=== PATIENT | male | born 1955 | race Caucasian/White ===

== ENCOUNTER 2020-06-26 08:42 | Outpatient (CLI) | payer MEDICARE, MEDICAID, SELFPAY ==
--- NOTE | 2020-06-26 09:34 | ONC FU_ITS ---
Dr. Maurice Patient Follow-Up Note Patient: Jorge Tubbs Unit #: [id number]: 1955 Dicatated By: Zhang Maurice M.D.Date of Visit:Jun 26, 2020 Onc Med Follow-up/Prog Note Chief Complaint: Elevated blood count. History of Present Illness: This is a 64 year-old man with secondary polycythemia. I had seen him initially in May 2016 in regard to an elevated blood count. At the time he indicated that he had been told in the past that it was due to smoking. His records from Dr. Jiménez included laboratory studies from 04/17/2016. The CBC at that time showed elevated hemoglobin and 19.2 g with hematocrit 56.6%. The red cell indices were in the upper normal range. White blood cell count was 8400 and the platelet count was 196,000. Comprehensive metabolic profile was unremarkable. Hemoglobin A1c level was 6.2%. Previous lab studies from 01/02/2016 included a serum iron of 92 mcg/dL with transferrin saturation 34% and normal ferritin at 210 ng/mL. His records in [facility] include blood counts in August 2009 and in May 2013. These showed hemoglobin levels of 17.4 and 17.9 g respectively with hematocrit levels 51.0 and 54.2%. Both had mildly elevated white blood cell counts and normal platelet counts. He had additional laboratory studies on 06/19/2016. These included an erythropoietin level in the normal range at 17 mIU/mL. The JAK2 (V617F) mutation and the JAK2 exon 12 mutation were not detected. As such, polycythemia rubra vera appeared to be very unlikely, and he was given a presumptive diagnosis of secondary polycythemia. He has been phlebotomized as needed with a target HCT of 50%. His other medical illnesses include hypertension and borderline diabetes. He is disabled due to long-standing osteoarthritis. He has a history of smoking 1-2 packs of cigarettes daily for 45 years. He quit smoking in April 2016. He is seen for a follow-up visit. He had been to see Dr. Jiménez last month and his CBC showed significantly elevated hemoglobin 19.0 g with his hematocrit elevated at 55.5%. White blood cell count was normal at 7800 and platelet count was normal at 203,000. He indicates that he was diagnosed with COVID-19 virus infection in July, but he recovered uneventfully. He complains that he has no energy, but he is still able to do some light work. ECOG score is 1. He has been watching his diet. He is eating only 1 meal a day. He has not had fever. He does have some sweating at night. His breathing has been okay. He does not complain of cough and he has not been having chest pain. He has no GI or complaints. His main problem has been chronic pain. His neck bothers him the most. He also has back pain. It is significant enough to interfere with his sleep. He does not complain of headache. He has occasional dizzy spells. He has numbness/tingling from his knees down to his feet. Medications: Aspirin 0.5 (325 mg) Tablet Oral daily, Gabapentin 1 (600 mg) Tablet Oral b.i.d., Ibuprofen 1 (800 mg) Tablet Oral b.i.d., Lisinopril-Hydrochlorothiazide 1 Tablet (of 20-12.5 mg) Oral daily, TiZANidine HCl 1 (2 mg) Tablet Oral at bedtime PRN Allergies: Codeine Sulfate Vital Signs: Performed on Jun 26, 2020 08:58 Height - 68.50 in Weight - 282 lbs (HIGH) BSA - 2.38 sq.m BMI - 42.25 (HIGH) Temperature - 97.8 F (LOW) Pulse - 79 /min Respiration - 18 /min BP - 152/95 mm(hg) (HIGH) O2 Sat - 96 % Pain - 0 Physical Examination: Constitutional - He does not appear acutely ill, Eyes - Sclerae nonicteric. Conjunctivae clear, ENMT - No lesions noted in the oral cavity, Hematologic/Lymphatic - No cervical, clavicular, or axillary adenopathy, Respiratory - Lungs sound clear with diminished air movement bilaterally, Cardiovascular - Heart rhythm is regular. There is no murmur, gallop, or rub noted, Abdomen - Mildly distended. Liver and spleen are not enlarged. There is no abdominal mass or ascites noted and there is no inguinal adenopathy, Extremities - No edema, Neurologic - No focal neurologic deficits noted. Lab/Imaging: Test performed on Jun 07, 2020 08:18 Iron, Total 90 mcg/dL Cholesterol, Total 234 mg/dL Glucose 173 mg/dL BUN 23 mg/dL HDL Cholesterol 48 mg/dL Creatinine 1.32 mg/dL Cr Clearance (Est) 92.76 mL/min VLDL Cholesterol 186 mg/dL Triglycerides 427 mg/dL Sodium 138 mmol/L Potassium 4.3 mmol/L Chloride 100 mmol/L CO2 26 mmol/L Calcium 9.4 mg/dL Protein, Total 7.4 g/dL Albumin 4.5 g/dL Globulin 2.5 g/dL Bilirubin, Total 0.5 mg/dL Alkaline Phosphatase 61 IU/L AST (SGOT) 19 IU/L ALT (SGPT) 41 IU/L Hemoglobin A1C 7.1 % WBC 7.8 10^9/L RBC 6.18 10^12/L HGB 19.0 g/dL HCT 55.5 % MCV 89.8 fl MCH 30.7 pg MCHC 34.2 g/dL RDW 13.6 % Platelet Count 203 10^9/L MPV 10.8 fL Neutrophils (Gran) 4641 10^9/L Lymphocytes 2231 10^9/L Monocytes 686 10^9/L Eosinophils 179 10^9/L Basophils 62 10^9/L Manual Lymphocytes 28.6 % Manual Monocytes 8.8 % Manual Eosinophils 2.3 % Manual Basophils 0.8 % Problem List: 1. Secondary polycythemia. 2. COPD. 3. Hypertension. 4. Type 2 diabetes. 5. Degenerative arthritis/degenerative disease of the spine. 6. Obesity. 7. He was diagnosed with COVID-19 virus infection in July 2019. He recovered uneventfully. Problems Addressed with this Encounter and Plan: Patient presented in May 2016 with significantly elevated hemoglobin/hematocrit levels in the setting of normal white blood cell count and normal platelet count. He had a significant smoking history, but he was not overtly hypoxic. His laboratory evaluation included a normal erythropoietin level. The JAK2 (V617F) mutation and the JAK2 exon 12 mutation were not detected. Overall, the findings were consistent with secondary polycythemia. He has been phlebotomized with his target hematocrit over 50%. He has not been consistent with follow-up. He had seen Dr. Jiménez for a follow-up visit last month. His hemoglobin at that time was significantly elevated at 19.0 g with hematocrit 55.8%. He does have limited activity tolerance, but his overall clinical status appears stable. He will be phlebotomized 1 unit PRBC today. He will be scheduled for repeat CBC in 6 weeks and for a follow-up visit in 3 months. He will be phlebotomized again as needed for hematocrit > 52%. Signed By: Zhang Maurice M.D. <<Signature on File>>
== END 2020-06-26 08:43 | disposition home or self-care (01) ==
LOC: ONCMED 08:48
PROVIDERS: PCP Electrodiagnostic Medicine; Visit Provider Internal Medicine Medical Oncology
DX: D75.1 Secondary polycythemia (principal); Z86.16 Personal history of COVID-19
CPT/HCPCS: 99214

== ENCOUNTER 2021-05-21 08:50 | Outpatient (CLI) | payer MEDICARE, MEDICAID, SELFPAY ==
--- NOTE | 2021-05-21 09:10 | XR_ITS ---
WS: [id number] Left hand, 3 views, 05/21/2021 Clinical Data: OSTEOARTHRITIS THUMB/L THUMB PAIN Comparison: None. Findings: No fractures or dislocations are seen. The soft tissues are unremarkable. There is osteoarthritic jose juan nge of the left first finger IP joint. XR/XR hand LT min 3V* [id number] Impression: Osteoarthritis of the left first finger IP joint.
== END 2021-05-21 08:51 | disposition home or self-care (01) ==
LOC: RAD 09:01
PROVIDERS: PCP Electrodiagnostic Medicine; Visit Provider Electrodiagnostic Medicine
DX: M19.042 Primary osteoarthritis, left hand (principal)
CPT/HCPCS: 73130

== ENCOUNTER 2021-07-29 21:09 | Emergency (ER) | payer MEDICARE, MEDICAID, SELFPAY ==
--- NOTE | 2021-07-29 21:27 | ECG_ITS ---
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 Measurements Intervals Mcdonald Rate: 95 P: 56 CT: 131 QRS: -1 QRSD: 93 T: 68 QT: 328 QTc: 414 Interpretive Statements SINUS RHYTHM MODERATE ST DEPRESSION [0.05+ mV ST DEPRESSION] No previous ECG available for comparison Electronically Signed On 07-30-2021 9:19:17 CDT by Miguel Marmolejo M.D. [email or web address] general [email or web address] regional medical center.[employer]/store/NU/[id number] f
--- NOTE | 2021-07-29 21:27 | XRR_ITS ---
PROCEDURE INFORMATION: Exam: XR Chest Exam date and time: 07/29/2021 9:40 PM Age: 65 years old Clinical indication: Pain; Chest pressure; Additional info: Cp TECHNIQUE: Imaging protocol: XR of the chest. Views: 1 view. COMPARISON: CR Chest 2 views* [id number] 02/08/2016 3:52 PM FINDINGS: Lungs: Emphysematous changes suspected. Bibasilar atelectasis versus minimal infiltrate. Pleural spaces: Unremarkable. No pleural effusion. No pneumothorax. Heart/Mediastinum: Cardiomegaly. Bones/joints: Unremarkable. XR/XR chest 1V portable [id number] IMPRESSION: 1. Cardiomegaly. 2. Emphysematous changes suspected. 3. Bibasilar atelectasis versus minimal infiltrate.
[2021-07-29 21:35] VITALS: BP 184/118; PULSE 96; RESP 18; O2SAT 94
[2021-07-29 21:37] LABS: Basophils # 0.1 10^3/uL (0.0-0.1); Basophils % 0.5 %; Eosinophils # 0.2 10^3/uL (0.0-0.8); Eosinophils % 1.7 %; Hematocrit 54.3 % (42.0-52.0); Hemoglobin 17.7 g/dL (11.7-16.6); Lymphocytes # 2.5 10^3/uL (0.8-4.8); Lymphocytes % 26.4 %; Mean Corpuscular HGB Conc 32.6 g/dL (30.0-36.0); Mean Corpuscular Hemoglobin 29.2 pg (28.0-34.0); Mean Corpuscular Volume 89.6 fl (80-94); Monocytes # 0.9 10^3/uL (0.2-0.9); Monocytes % 9.6 %; Neutrophils # 5.88 10^3/uL (1.8-7.7); Neutrophils % 61.1 %; Nucleated Red Blood Cells % 0 %; Platelet Count 239 10^3/cmm (130-400); Red Blood Count 6.06 10^6/uL (4.1-5.3); Red Cell Distribution Width 13.7 % (12.1-15.1); White Blood Count 9.6 10^3/uL (4.0-10.0)
--- NOTE | 2021-07-29 21:42 | ED_ITS ---
HPI - Chest Pain General: Chief Complaint: Chest Pain Stated Complaint: cp Time Seen by Provider: 07/29/21 21:16 Source: patient Mode of arrival: ambulatory Limitations: no limitations History of Present Illness: 65-year-old male states been having some pain in the left side of his chest along with his left neck and left arm. States is been a sharp pain denies any worsening proving factor states pain currently is a 4 out of 10. He states that he did have a tree limb fall on the left neck 1 week ago states that pain has been getting better this pain seems different denies any shortness of breath denies any fever cough. Associated symptoms: Deny abdominal pain, dyspnea, fever(s), nausea or vomiting Review of Systems Const: Denies: fever(s), chills, body aches or change in appetite Eyes: Denies: blurry vision or eye discomfort ENMT: Denies: throat pain or dental pain Card: Reports: chest pain Resp: Denies: dyspnea GI: Denies: abdominal pain, nausea, vomiting or diarrhea : Denies: dysuria Musc: Reports: neck pain Skin/Breast: Denies: rash Neuro: Denies: headache(s) Psych: Denies: depression Wilfrid/Lymph: Denies: easy bruising All/Imm: Denies: urticaria PFSH ED PFSH: Family History (Updated 07/29/21 @ 21:44 by Lizbeth Hook MD) Denies family history of Cancer Social History (Updated 07/29/21 @ 21:43 by Lizbeth Hook MD) Substance/Drug Use: never Physical Exam Const: COMMON NORMALS: no acute distress, patient oriented x3 and healthy appearing HENMT: COMMON NORMALS: normocephalic and atraumatic HEAD & SCALP: normocephalic and atraumatic Eye: COMMON NORMALS: Equal, round and reactive pupils present and EOMs intact bilaterally PUPIL: Yes Equal, round and reactive pupils present Neck/C-Spine: COMMON NORMALS: full ROM and supple Chest: COMMONS NORMALS: normal inspection of the chest and normal palpation of entire chest wall Resp: COMMON NORMALS: normal respiratory effort, No retractions, No use of accessory muscles and clear to auscultation bilaterally AUSCULTATION: clear to auscultation bilaterally Cardio: COMMON NORMALS: regular rate, regular rhythm and No murmurs present (Cardio) RATE: regular rate RHYTHM: regular rhythm GI: COMMON NORMALS: Normal to inspection, nondistended, normoactive bowel sounds present, Soft to palpation, non-tender and no masses PALPATION: Yes Soft to palpation Extremity: COMMON NORMALS: normal to inspection and full ROM Neuro: COMMON NORMALS: patient oriented x3, moves all extremities and no focal motor deficits Psych: COMMON NORMALS: mental status grossly normal, Normal thought process present and cooperative THOUGHT PROCESS: Normal thought process present Skin: COMMON NORMALS: no rashes or lesions noted and no wounds GENERAL SKIN EXAM: no rashes or lesions noted Course Vital Signs: Vital signs: Vital Signs Pulse Rate 96 07/29/21 21:35 Respiratory Rate 18 07/29/21 22:33 Blood Pressure 184/118 07/29/21 21:35 Pulse Oximetry 94 07/29/21 21:35 MDM - Chest Pain Medical Decision Making Patient presents here with some chest pain along with left arm pain atypical in nature could be some pain from his injury last week his initial and repeat troponin D-dimer is negative EKGs here are normal as well he is stable for discharge he is to follow-up with his PCP his blood pressure at discharge is 128/95. He is return if worsening he understands agrees to plan. Lab Data : 07/29/21 21:25 07/29/21 21:25 Radiology Impressions Chest X-Ray 07/29/21 21:27 IMPRESSION: 1. Cardiomegaly. 2. Emphysematous changes suspected. 3. Bibasilar atelectasis versus minimal infiltrate. Laboratory Results WBC 9.6 10^3/uL (4.0-10.0) 07/29/21 21:25 RBC 6.06 10^6/uL (4.1-5.3) H 07/29/21 21:25 Hgb 17.7 g/dL (11.7-16.6) H 07/29/21 21:25 Hct 54.3 % (42.0-52.0) H 07/29/21 21:25 MCV 89.6 fl (80-94) 07/29/21 21:25 MCH 29.2 pg (28.0-34.0) 07/29/21 21: MCHC 32.6 g/dL (30.0-36.0) 07/29/21 21:25 RDW 13.7 % (12.1-15.1) 07/29/21 21:25 Plt Count 239 10^3/cmm (130-400) 07/29/21 21: MPV 10.0 fL (7.4-10.4) 07/29/21 21:25 Neut % (Auto) 61.1 % 07/29/21 21: Lymph % (Auto) 26.4 % 07/29/21 21: [place] % (Auto) 9.6 % 07/29/21 21:25 Eos % (Auto) 1.7 % 07/29/21 21: Baso % (Auto) 0.5 % 07/29/21: Neut # (Auto) 5.88 10^3/uL (1.8-7.7) 07/29/21: Lymph # (Auto) 2.5 10^3/uL (0.8-4.8) 07/29/21: [place] # (Auto) 0.9 10^3/uL (0.2-0.9) 07/29/21 21: Eos # (Auto) 0.2 10^3/uL (0.0-0.8) 07/29/21: Baso # (Auto) 0.1 10^3/uL (0.0-0.1) 07/29/21: Nucleated RBC % (auto) 0 % 07/29/21: Nucleated RBCs # 0.0 /100WBC 07/29/21: D-Dimer 0.31 ug/mIFEU (0-0.59) 07/29/21 21:25 Sodium 141 mmol/L (136-145) 07/29/21 21:25 Potassium 4.3 mmol/L (3.5-5.1) 07/29/21: Chloride 102 mmol/L (98-107) 07/29/21 21:25 Carbon Dioxide 27 mmol/L (22-29) 07/29/21 21:25 Anion Gap 16.3 (5-19) 07/29/21 21:25 BUN 22 mg/dL (8-23) 07/29/21 21:25 Creatinine 1.7 mg/dL (0.7-1.2) H 04/04/22 21:25 GFR Calculation 40.8 mL/min (90-130) L 07/29/21 21:25 Glucose 133 mg/dL (65-115) H 07/29/21 21:25 Calculated Osmolality 297 mOsm/kg (285-295) H 07/29/21 21:25 Calcium 9.7 mg/dL (8.5-10.5) 07/29/21 21:25 Total Bilirubin 0.3 mg/dL (0.15-1.2) 07/29/21 21:25 AST 18 U/L (0-40) 07/29/21 21:25 ALT 30 U/L (0-41) 07/29/21 21:25 Alkaline Phosphatase 64 IU/L (40-130) 07/29/21 21:25 Troponin T Baseline 15 ng/L (0-15) 07/29/21 21:25 Troponin T 120 Minute 15.03 ng/L (0-15) H 07/29/21 23:00 Delta Troponin T 0.03 ABS# (0-10) 07/29/21 23:00 Total Protein 6.3 g/dL (6.6-8.7) L 07/29/21 21:25 Albumin 4.6 g/dL (3.5-5.2) 07/29/21 21:25 Globulin 1.7 g/dL (1.3-4.6) 07/29/21 21:25 EKG Data EKG 1: I personally reviewed and interpreted this EKG as follows: EKG interpretation date: 07/29/21 EKG interpretation time: 21:19 Interpretation: nsr hr [address] or t wave abnormalities qrs 93 qtc 381 EKG 2: I personally reviewed and interpreted this EKG as follows: EKG interpretation date: 07/29/21 EKG interpretation time: 23:38 Interpretation: nsr hr [address] or t wave abnormalities qrs 106 qtc 415 Discharge Plan Discharge Patient Disposition: Home Clinical Impression: Chest pain Discharge Orders: Discharge ED (Routine); Ordered 07/29/21 Ordered By: Lizbeth Hook Referrals: Sg Jiménez DO [Primary Care Provider] - 1-3 days Discharge Diet: Advance as tolerated Discharge Activity: Resume usual activity Patient Instructions: Chest Pain (ED) Coding Level of Care Code ED Manager [employer] for Chg Fwd Exam Comprehensive
[2021-07-29 22:19] LABS: Alanine Aminotransferase 30 U/L (0-41); Albumin Level 4.6 g/dL (3.5-5.2); Alkaline Phosphatase 64 IU/L (40-130); Aspartate Amino Transferase 18 U/L (0-40); Blood Urea Nitrogen 22 mg/dL (8-23); Calcium 9.7 mg/dL (8.5-10.5); Carbon Dioxide 27 mmol/L (22-29); Chloride 102 mmol/L (98-107); Globulin 1.7 g/dL (1.3-4.6); Glomerular Filtration Rate 40.8 mL/min (90-130); Glucose 133 mg/dL (65-115); Osmolality Calculated 297 mOsm/kg (285-295); Sodium 141 mmol/L (136-145); Total Bilirubin 0.3 mg/dL (0.15-1.2); Total Protein 6.3 g/dL (6.6-8.7)
[2021-07-29 22:22] LABS: Anion Gap 16.3 (5-19); Potassium 4.3 mmol/L (3.5-5.1)
[2021-07-29 22:24] LABS: D Dimer 0.31 ug/mIFEU (0-0.59)
[2021-07-29 22:32] LABS: Troponin(5th) Baseline 15 ng/L (0-15)
[2021-07-29 22:33] VITALS: RESP 18
[2021-07-29] MEDS: HYDROmorphone 1 mg/mL INJ 1 mL IVP (22:33)
[2021-07-29] MEDS: ondansetron 2 mg/ML SDV 2 mL 4 MG IVP (22:33)
[2021-07-29] MEDS: aspirin 81 mg Chew Tablet 324 MG PO (22:34)
--- NOTE | 2021-07-29 23:27 | ECG_ITS ---
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 Measurements Intervals [place] Rate: 80 P: 69 ME: 136 QRS: 6 QRSD: 106 T: 55 QT: 379 QTc: 439 Interpretive Statements SINUS RHYTHM No previous ECG available for comparison Electronically Signed On 07-30-2021 9:25:51 CDT by Miguel Marmolejo M.D. [email or web address].[employer]/store/[id number]
[2021-07-29 23:35] LABS: Troponin 5 2HR 15.03 ng/L (0-15); Troponin 5 2HR Delta 0.03 ABS# (0-10)
== END 2021-07-30 00:14 | disposition home or self-care (01) ==
PROVIDERS: Emergency Provider Emergency Medicine; PCP Electrodiagnostic Medicine
DX: R07.9 Chest pain, unspecified (principal); I51.7 Cardiomegaly
CPT/HCPCS: 71045; 80053; 84484; 85025; 85378; 93005; 96374; 96375; 99283; J1170; J2405

== ENCOUNTER → 2021-09-04 13:14 | Outpatient (BNVA) | payer MEDICARE, MEDICAID, SELFPAY | PROVIDERS: PCP Electrodiagnostic Medicine; Referring Provider Electrodiagnostic Medicine; Visit Provider Podiatrist Foot & Ankle Surgery | DX: M72.2 Plantar fascial fibromatosis (principal) | CPT/HCPCS: 73630; 99204 ==

== ENCOUNTER 2021-09-04 14:20 | Outpatient (CLI) | payer MEDICARE, MEDICAID, SELFPAY | END 2021-09-04 14:21 | disposition home or self-care (01) | LOC: SPT 14:21 | PROVIDERS: PCP Electrodiagnostic Medicine; Visit Provider Podiatrist Foot & Ankle Surgery | DX: Z46.89 Encounter for fitting and adjustment of other specified devices (principal); M72.2 Plantar fascial fibromatosis | CPT/HCPCS: 97760; L4397 ==

== ENCOUNTER → 2021-10-16 14:40 | Outpatient (BNVA) | payer MEDICARE, MEDICAID, SELFPAY | PROVIDERS: PCP Electrodiagnostic Medicine; Visit Provider Podiatrist Foot & Ankle Surgery | DX: M72.2 Plantar fascial fibromatosis (principal) | CPT/HCPCS: 99213 ==

== ENCOUNTER 2021-11-19 09:18 | Outpatient (CLI) | payer MEDICARE, MEDICAID, SELFPAY | END 2021-11-19 09:19 | disposition home or self-care (01) | LOC: SPT 09:19 | PROVIDERS: PCP Electrodiagnostic Medicine; Visit Provider Podiatrist Foot & Ankle Surgery | DX: Z46.89 Encounter for fitting and adjustment of other specified devices (principal); M72.2 Plantar fascial fibromatosis | CPT/HCPCS: 97760; L3030 ==

== ENCOUNTER 2023-03-14 18:38 | Emergency (ER) | payer MEDICARE, MEDICAID, SELFPAY ==
[2023-03-14 18:50] VITALS: BP 173/93; PULSE 101; RESP 18; TEMP 36.6; O2SAT 94; BMI 42.4
--- NOTE | 2023-03-14 20:08 | XRR_ITS ---
PROCEDURE INFORMATION: Exam: XR Chest Exam date and time: 03/14/2023 8:11 PM Age: 67 years old Clinical indication: Chest pressure; Patient HX: C/O chest pain; Additional info: Cp TECHNIQUE: Imaging protocol: Radiologic exam of the chest. Views: 1 view. COMPARISON: CR XR chest 1V portable [id number] 07/29/2021 9:40 PM FINDINGS: Lungs: Unremarkable. No consolidation. Pleural spaces: Unremarkable. No pleural effusion. No pneumothorax. Heart/Mediastinum: Unremarkable. No cardiomegaly. Bones/joints: Unremarkable. XR/XR chest 1V [id number] IMPRESSION: No acute findings.
[2023-03-14 20:53] LABS: Basophils # 0.1 10^3/uL (0.0-0.1); Basophils % 0.5 %; Eosinophils # 0.2 10^3/uL (0.0-0.8); Eosinophils % 1.7 %; Hematocrit 55.9 % (37-53); Lymphocytes # 2.4 10^3/uL (0.8-4.8); Lymphocytes % 25.2 %; Mean Corpuscular HGB Conc 32.4 g/dL (30-55); Mean Corpuscular Hemoglobin 29.7 pg (27-33); Mean Corpuscular Volume 91.8 fl (82-101); Mean Platelet Volume 9.9 fL (7.4-10.4); Monocytes # 0.8 10^3/uL (0.2-0.9); Monocytes % 8.3 %; Neutrophils # 6.01 10^3/uL (1.8-7.7); Neutrophils % 63.6 %; Nucleated Red Blood Cells % 0 %; Platelet Count 218 10^3/cmm (157-399); Red Blood Count 6.09 10^6/uL (3.85-5.65); Red Cell Distribution Width 13.9 % (12.1-15.1); White Blood Count 9.45 10^3/uL (3.29-11.43)
[2023-03-14 20:54] VITALS: BP 160/108; PULSE 79; RESP 18; O2SAT 95
[2023-03-14 21:17] LABS: Troponin(5th) Baseline 12 ng/L (0-15)
[2023-03-14 21:26] LABS: Alanine Aminotransferase 32 U/L (0-41); Albumin Level 4.3 g/dL (3.5-5.2); Alkaline Phosphatase 59 U/L (40-130); Anion Gap 18.3 (5-19); Aspartate Amino Transferase 20 U/L (0-40); Blood Urea Nitrogen 28 mg/dL (8-23); Calcium 9.5 mg/dL (8.5-10.5); Carbon Dioxide 25 mmol/L (22-29); Chloride 101 mmol/L (98-107); Globulin 2.6 g/dL (1.3-4.6); Glomerular Filtration Rate 50.7 mL/min (90-130); Glucose 176 mg/dL (65-115); Osmolality Calculated 300 mOsm/kg (285-295); Potassium 4.3 mmol/L (3.5-5.1); Sodium 140 mmol/L (136-145); Total Bilirubin 0.3 mg/dL (0.15-1.2); Total Protein 6.9 g/dL (6.6-8.7)
--- NOTE | 2023-03-14 21:45 | ECG_ITS ---
[facility] Test Date: 2023-03-14 Pat Name: Jorge Tubbs Department: Room: Gender: Male Care Asst: : 1955 Requested By: Kathy eMza Order Number: [id number] Conor MD: Radha Yates M.D. Measurements Intervals [place] Rate: 83 P: 59 AR: 141 QRS: -17 QRSD: 98 T: 63 QT: 349 QTc: 412 Interpretive Statements SINUS RHYTHM WITH SINUS ARRHYTHMIA Compared to ECG 07/29/2021 23:38:24 No significant changes Electronically Signed On 03-15-2023 22:01:55 OCCUPATIONAL THERAPIST ASSISTANT by Radha Yates M.D. [email or web address]FSLogixselect medical specialty hospital - boardman, incMattermark/store/[id number]
--- NOTE | 2023-03-14 22:08 | ECG_ITS ---
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 Measurements Intervals [place] Rate: 98 P: -13 NV: 145 QRS: 97 QRSD: 98 T: -11 QT: 326 QTc: 417 Interpretive Statements SINUS RHYTHM BORDERLINE RIGHT AXIS DEVIATION [QRS AXIS > 90] NONSPECIFIC ST & T-WAVE ABNORMALITY Compared to ECG 07/29/2021 23:38:24 T-wave abnormality now present Electronically Signed On 03-15-2023 22:15:45 HIGH SCHOOL TEACHER by Radha Yates M.D. [email or web address]/store/[id number] f
--- NOTE | 2023-03-14 22:35 | ED_ITS ---
HPI - Chest Pain General: Chief Complaint: Chest Pain Stated Complaint: CP Time Seen by Provider: 03/14/23 21:16 History of Present Illness: 67-year-old male. No prior history of coronary disease. He presents with left arm discomfort, as well as chest discomfort and neck discomfort. He has been burning leaves for the last 3 days. He notes that the pain started really in his left arm, and he thought it was sore muscles. When it reached his chest, and into his neck, he became more concerned. His wanted him to get checked out. Associated symptoms: Deny abdominal pain, dyspnea, fever(s), nausea, palpitations or vomiting Review of Systems Const: Denies: fever(s), chills or body aches Eyes: Denies: change in vision Card: Reports: chest pain; Denies: palpitations Resp: Denies: dyspnea, productive cough, non-productive cough or wheezing GI: Denies: abdominal pain, nausea, vomiting, diarrhea or hematochezia Musc: Reports: neck pain and extremity pain Skin/Breast: Denies: rash Neuro: Denies: headache(s), weakness in extremities, dizziness or confusion PFSH ED PFSH: Family History Denies family history of Cancer Social History Substance/Drug Use: never Physical Exam Const: COMMON NORMALS: no acute distress GENERAL APPEARANCE: cooperative; not ill appearing and not frail appearing HENMT: COMMON NORMALS: normocephalic, atraumatic and Normal external nose present HEAD & SCALP: normocephalic and atraumatic FACE & SINUS: normal facial exam and face symmetric NOSE: Normal external nose present Eye: COMMON NORMALS: Equal, round and reactive pupils present and EOMs intact bilaterally PUPIL: Yes Equal, round and reactive pupils present Neck/C-Spine: GENERAL: Yes trachea midline Chest: CHEST: Yes Symmetrical chest wall rise Resp: COMMON NORMALS: normal respiratory effort, No retractions, No use of accessory muscles and clear to auscultation bilaterally AUSCULTATION: clear to auscultation bilaterally Cardio: COMMON NORMALS: regular rate and regular rhythm RATE: regular rate RHYTHM: regular rhythm GI: COMMON NORMALS: Normal to inspection, nondistended, normoactive bowel sounds present Extremity: COMMON NORMALS: no pedal edema Neuro: JUANIS COMA SCALE: document GCS findings Juanis coma scale eye opening: Spontaneous [place] coma scale verbal response: Orientated Juanis coma scale motor response: Obey commands [place] coma scale total score: 15 SENSORY EXAM: Yes extremities (intact) Psych: COMMON NORMALS: speech normal SPEECH: Yes normal speech Skin: COMMON NORMALS: no rashes or lesions noted GENERAL SKIN EXAM: no rashes or lesions noted Course Vital Signs: Vital signs: Vital Signs Temperature 97.9 F 03/14/23 18:50 Pulse Rate 85 03/14/23 23:40 Respiratory Rate 18 03/14/23 23:40 Blood Pressure 142/87 03/14/23 23:40 Pulse Oximetry 98 03/14/23 23:40 Oxygen Delivery Me thod Room Air 03/14/23 18:50 MDM - Chest Pain Medical Decision Making The patient does have some left arm soreness on exam. This is reproducible. His chest pain is resolved. He is hypertensive. Vitals otherwise good. Hemoglobin is 18. Creatinine is 1.4. Blood sugar is 176. Labs otherwise not remarkable. Initial troponin is 12. His first EKG shows normal sinus rhythm with sinus arrhythmia, normal axis normal intervals and no ST wave changes. Rate is 80. Second EKG shows a sinus rhythm with a bit of anterior lateral ST depression, although without T wave inversion may be lead placement. Awaiting second troponin. Chest x-ray is negative. Second troponin remains normal with a normal delta. He is allowed discharge. Lab Data 03/14/23 20:46 03/14/23 20:46 Radiology Impressions Chest X-Ray 03/14/23 20:08 IMPRESSION: No acute findings. Laboratory Results WBC 9.45 10^3/uL (3.29-11.43) 03/14/23 20:46 RBC 6.09 10^6/uL (3.85-5.65) H 03/14/23 20:46 Hgb 18.10 g/dL (11.27-16.99) H 03/14/23 20:46 Hct 55.9 % (37-53) H 03/14/23 20:46 MCV 91.8 fl (82-101) 03/14/23 20:46 MCH 29.7 pg (27-33) 03/14/23 20:46 MCHC 32.4 g/dL (30-55) 03/14/23 20:46 RDW 13.9 % (12.1-15.1) 03/14/23 20:46 Plt Count 218 10^3/cmm (157-399) 03/14/23 20:46 MPV 9.9 fL (7.4-10.4) 03/14/23 20:46 Neut % (Auto) 63.6 % 03/14/23 20:46 Lymph % (Auto) 25.2 % 03/14/23 20:46 [place] % (Auto) 8.3 % 03/14/23 20:46 Eos % (Auto) 1.7 % 03/14/23 20:46 Baso % (Auto) 0.5 % 03/14/23 20:46 Neut # (Auto) 6.01 10^3/uL (1.8-7.7) 03/14/23 20:46 Lymph # (Auto) 2.4 10^3/uL (0.8-4.8) 03/14/23 20:46 [place] # (Auto) 0.8 10^3/uL (0.2-0.9) 03/14/23 20:46 Eos # (Auto) 0.2 10^3/uL (0.0-0.8) 03/14/23 20:46 Baso # (Auto) 0.1 10^3/uL (0.0-0.1) 03/14/23 20:46 Nucleated RBC % (auto) 0 % 03/14/23 20:46 Nucleated RBCs # 0.0 /100WBC 03/14/23 20:46 Sodium 140 mmol/L (136-145) 03/14/23 20:46 Potassium 4.3 mmol/L (3.5-5.1) 03/14/23 20:46 Chloride 101 mmol/L (98-107) 03/14/23 20:46 Carbon Dioxide 25 mmol/L (22-29) 03/14/23 20:46 Anion Gap 18.3 (5-19) 03/14/23 20:46 BUN 28 mg/dL (8-23) H 03/14/23 20:46 Creatinine 1.4 mg/dL (0.7-1.2) H 03/14/23 20:46 GFR Calculation 50.7 mL/min (90-130) L 03/14/23 20:46 Glucose 176 mg/dL (65-115) H 03/14/23 20:46 Calculated Osmolality 300 mOsm/kg (285-295) H 03/14/23 20:46 Calcium 9.5 mg/dL (8.5-10.5) 03/14/23 20:46 Total Bilirubin 0.3 mg/dL (0.15-1.2) 03/14/23 20:46 AST 20 U/L (0-40) 03/14/23 20:46 ALT 32 U/L (0-41) 03/14/23 20:46 Alkaline Phosphatase 59 U/L (40-130) 03/14/23 20:46 Troponin T Baseline 12 ng/L (0-15) 03/14/23 20:46 Troponin T 120 Minute 12.24 ng/L (0-15) 03/14/23 22:25 Delta Troponin T 0.24 ABS# (0-10) 03/14/23 22:25 Total Protein 6.9 g/dL (6.6-8.7) 03/14/23 20:46 Albumin 4.3 g/dL (3.5-5.2) 03/14/23 20:46 Globulin 2.6 g/dL (1.3-4.6) 03/14/23 20:46 All radiology interpretation(s) finalized by discharge Discharge Plan Discharge Patient Disposition: Home Clinical Impression: Chest pain, Strain of left upper arm Condition: Stable Prescriptions: No Action (DME) Night Splint See Rx Instructions .Route .MEDSUPPLY Qty: 1 0RF Rx Instructions: As directed (DME) Arch Support See Rx Instructions .Route .MEDSUPPLY Qty: 1 0RF Rx Instructions: As directed (DME) Sole Supports See Rx Instructions .Route .MEDSUPPLY Qty: 1 0RF Rx Instructions: As directed Discharge Orders: Discharge ED (Routine); Ordered 03/14/23 Ordered By: Manuel Steen Referrals: Sg Jiménez DO [Primary Care Provider] - 1-3 days Patient Instructions: Chest Pain (ED), Muscle Strain (ED), Opioid Safety, Pain Management Activity Restrictions/Additional Instructions: Ice, rest, you may take Tylenol for discomfort. Return for worsening pain, worsening chest discomfort, shortness of breath, arm swelling, any other concerning symptoms. See your doctor next week. Coding Level of Care Code ED Ict Help Desk Officer for Jamin Scales
[2023-03-14 23:23] LABS: Troponin 5 2HR 12.24 ng/L (0-15); Troponin 5 2HR Delta 0.24 ABS# (0-10)
[2023-03-14 23:30] VITALS: BP 168/88; PULSE 82; O2SAT 95
[2023-03-14 23:40] VITALS: BP 142/87; PULSE 85; RESP 18; O2SAT 98
== END 2023-03-14 23:41 | disposition home or self-care (01) ==
PROVIDERS: Physician Assistant; Emergency Provider Emergency Medicine; PCP Electrodiagnostic Medicine
DX: R07.9 Chest pain, unspecified (principal); S46.912A Strain of unspecified muscle, fascia and tendon at shoulder and upper arm level, left arm, initial encounter; X58.XXXA Exposure to other specified factors, initial encounter
CPT/HCPCS: 36415; 71045; 80053; 84484; 85025; 93005; 99285

== ENCOUNTER 2023-03-20 15:55 | Emergency (ER) | payer MEDICARE, MEDICAID, SELFPAY ==
[2023-03-20 16:19] VITALS: BP 140/97; PULSE 91; RESP 18; TEMP 36.7; O2SAT 94; BMI 42.3
--- NOTE | 2023-03-20 19:02 | W.ED.EXTPRO ---
HPI - Extremity Problem General: Chief complaint: Extremity Problem,Nontraumatic Stated complaint: Reported pain in hips and legs thinks sciatica Time Seen by Provider: 03/20/23 19:02 History of Present Illness: 67-year-old male patient comes in with complaints of increased low back pain for the last 3 days. Patient has a history of degenerative joint disease, degenerative disc disease, diabetes mellitus, neuropathy, hypertension, and high cholesterol. Patient routinely takes gabapentin and ibuprofen to control his pain. Patient also takes cholesterol medication and blood pressure medication daily. Patient appears nontoxic. Patient appears in no acute distress. Associated symptoms: Deny chest pain, fever(s) or rash Review of Systems General: Reports: 10 or more systems reviewed and unremarkable except in HPI and below Const: Denies: fever(s) Card: Denies: chest pain Resp: Denies: dyspnea GI: Denies: nausea or vomiting : Denies: flank pain Musc: Reports: back pain Skin/Breast: Denies: rash PFSH ED PFSH: Family History Denies family history of Cancer Social History Substance/Drug Use: never Physical Exam Const: COMMON NORMALS: alert HENMT: COMMON NORMALS: normocephalic and Normal external nose present HEAD & SCALP: normocephalic NOSE: Normal external nose present Neck/C-Spine: COMMON NORMALS: full ROM Resp: COMMON NORMALS: normal respiratory effort and clear to auscultation bilaterally AUSCULTATION: clear to auscultation bilaterally Cardio: COMMON NORMALS: regular rate and regular rhythm RATE: regular rate RHYTHM: regular rhythm GI: COMMON NORMALS: Soft to palpation PALPATION: Yes Soft to palpation Back/Pelvis: LUMBAR SPINE/LOWER BACK: No lumbar spinal tenderness and Yes paraspinal muscle tenderness Extremity: COMMON NORMALS: normal to inspection Neuro: SENSORIUM/ORIENTATION: Yes alert Skin: COMMON NORMALS: turgor normal GENERAL SKIN EXAM: turgor normal Course Vital Signs: Vital signs: Vital Signs Temperature 98.1 F 03/20/23 16:19 Pulse Rate 91 03/20/23 16:19 Respiratory Rate 14 03/20/23 19:29 Blood Pressure 140/97 03/20/23 16:19 Pulse Oximetry 94 03/20/23 19:29 Oxygen Delivery Me thod Room Air 03/20/23 16:19 MDM - Extremity (Nontraumatic) Medical Decision Making 67-year-old male patient comes in today for complaints of low back pain. On exam patient has some muscle tenderness of his lumbar spine. Patient has normal range of motion of extremities. Patient is ambulatory. Patient has a history of degenerative disc disease and sciatica. Patient reports that he was doing some housework and had been doing a lot over the head cleaning and aggravated his back approximately 3 days ago. Differential diagnosis includes facet arthritis, degenerative disc disease, intervertebral disc disease, lumbar strain. No signs of severe illness or injury was noted. Patient was given a dose of Toradol and hydromorphone for his pain. Patient was given a dose of dexamethasone for inflammation. Reviewed exam with patient with recommendations for treatment and follow-up. Patient reported understanding agreed to plan. No radiology studies performed this visit Discharge Plan Discharge Patient Disposition: Home Clinical Impression: Sciatic leg pain Condition: Stable Prescriptions: New methocarbamol 750 mg tablet 750 mg PO TID PRN (Reason: back pain, muscle spasm) Qty: 30 0RF No Action (DME) Night Splint See Rx Instructions .Route .MEDSUPPLY Qty: 1 0RF Rx Instructions: As directed (DME) Arch Support See Rx Instructions .Route .MEDSUPPLY Qty: 1 0RF Rx Instructions: As directed (DME) Sole Supports See Rx Instructions .Route .MEDSUPPLY Qty: 1 0RF Rx Instructions: As directed Discharge Orders: Discharge ED (Routine); Ordered 03/20/23 Ordered By: Byron Castaneda Referrals: Sg Jiménez DO [Primary Care Provider] - Discharge Diet: Usual diet Discharge Activity: Increase activity as tolerated Patient Instructions: Back Pain (ED) Activity Restrictions/Additional Instructions: Increase activity as tolerated. Gentle stretching and range of motion exercises. Drink plenty of water and fluids with medications. Return to ED for new concerns. 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
[2023-03-20 19:29] VITALS: RESP 14; O2SAT 94
[2023-03-20] MEDS: ketorolac 30 mg/mL INJ IM (19:29)
[2023-03-20] MEDS: HYDROmorphone 1 mg/mL INJ 1 mL IM (19:29)
[2023-03-20] MEDS: dexamethasone 10 mg/mL INJ IM (19:29)
[2023-03-20 19:56] VITALS: PULSE 92; RESP 18; O2SAT 94
== END 2023-03-20 19:57 | disposition home or self-care (01) ==
PROVIDERS: Emergency Provider Nurse Practitioner Family; PCP Electrodiagnostic Medicine
DX: M54.30 Sciatica, unspecified side (principal)
CPT/HCPCS: 96372; 99284; J1100; J1170; J1885

== ENCOUNTER 2023-04-24 11:01 | Outpatient (CLI) | payer MEDICARE, MEDICAID, SELFPAY ==
--- NOTE | 2023-04-24 11:09 | MR_ITS ---
WS: [id number] MRI LUMBAR SPINE NONCONTRAST TECHNIQUE: Sagittal T1, T2 and STIR imaging. Axial T1 and T2 imaging. CLINICAL INFORMATION: INTERVERTEBRA DISC DISORDER COMPARISON: None. FINDINGS: Mild lumbar curve. No acute compression. No high-grade central canal stenosis. L1-L2: Mild facet arthropathy. Spinal canal and foramen are patent. L2-L3: Mild annular bulging. Mild facet arthropathy. Spine canal and foramen are patent. L3-L4: Mild annular bulging. Slight narrowing subarticular recess bilaterally. Mild facet arthropathy . Foramen are patent. L4-L5: Mild annular bulging with slight impingement on the traversing L5 nerve roots bilaterally. Mil d facet arthropathy. Mild LEFT greater than RIGHT foraminal narrowing. L5-S1: RIGHT eccentric disc osteophyte complex impinges the exiting RIGHT L5 nerve root laterally wit h moderate RIGHT foraminal narrowing. LEFT foramen is patent. Mild facet arthropathy. Central disc bu lging impinges the traversing S1 nerve roots bilaterally. Visualized pelvic bony structures: Normal. Paravertebral soft tissues: Normal. Small LEFT renal cyst. Small central protrusion seen on the cervical spine crop picker imaging at C6-7. IMPRESSION: 1. Mild lumbar curve. No acute compression. No high-grade central canal stenosis. 2. RIGHT eccentric disc bulging and osteophytic ridging L5-S1 impinges the far exiting RIGHT L5 nerv e root. Recommend correlation RIGHT L5 nerve root symptoms. 3. Central disc bulge L5-S1 impinges the traversing S1 nerve roots bilaterally. 4. Shallow central disc bulge L4-5 slightly impinges the traversing L5 nerve roots bilaterally. 5. Mild LEFT greater than RIGHT L4-5 foraminal narrowing. 6. Mild facet arthropathy L3-L5. 7. Small central protrusion seen on the cervical spine crop picker imaging at C6-7.
== END 2023-04-24 11:02 | disposition home or self-care (01) ==
LOC: RAD 11:02
PROVIDERS: PCP Electrodiagnostic Medicine; Visit Provider Electrodiagnostic Medicine
DX: M51.37 Other intervertebral disc degeneration, lumbosacral region (principal); M48.07 Spinal stenosis, lumbosacral region; M47.816 Spondylosis without myelopathy or radiculopathy, lumbar region; M50.223 Other cervical disc displacement at C6-C7 level
CPT/HCPCS: 72148

== ENCOUNTER 2024-06-17 17:08 | Emergency (ER) | payer MEDICARE, MEDICAID, SELFPAY ==
[2024-06-17 17:09] VITALS: BP 182/98; PULSE 100; RESP 16; TEMP 36.6; O2SAT 94; BMI 41.3
--- NOTE | 2024-06-17 17:27 | XRR_ITS ---
PROCEDURE INFORMATION: Exam: XR Left Hip Exam date and time: 06/17/2024 5:31 PM Age: 68 years old Clinical indication: Hip pain; Left hip; Additional info: Twisting injury, 02/03 pain TECHNIQUE: Imaging protocol: Radiologic exam of the left hip. Views: 2 or 3 views hip with pelvis when performed. COMPARISON: CR XR lumbar spine 2-3V* [id number] 03/24/2023 8:57 AM FINDINGS: Bones/joints: Unremarkable. No acute fracture. Soft tissues: Unremarkable. XR/XR hip LT 2-3V wo/w pel* [id number] IMPRESSION: No acute findings.
[2024-06-17] MEDS: dexamethasone 10 mg/mL INJ IM (17:35)
[2024-06-17] MEDS: orphenadrine 30 mg/mL Inj 2 mL 60 MG IM (17:35)
[2024-06-17] MEDS: HYDROcodone-acetaminophen 5-325 mg Tablet 1 TAB PO (17:35)
--- NOTE | 2024-06-17 18:25 | ED_ITS ---
HPI - Extremity Problem General: Chief complaint: Extremity Injury, Lower Stated complaint: L hip injury Time Seen by Provider: 06/17/24 17:20 Source: patient Mode of arrival: ambulatory Limitations: no limitations History of Present Illness: Patient is a 68-year-old male who presents emergency department complaining of left hip pain beginning earlier today. States that this was a twisting injury, though he had mild pain early in the morning after cleaning snow off his vehicle. He uses a walker as needed, states he is concerned that he fractured his hip any surgery. He takes muscle relaxers regularly, took some ibuprofen for the pain before. Ultimately he states it does feel better after taking a hot shower before coming in. Also reports a history of sciatica and does feel pain radiating down his left leg. No other symptoms noted at this time. Hypertensive, rest of his vitals within normal limits. He has no previous injuries to the left hip or previous fractures or dislocations. In regards to his back pain, he has no bowel or bladder incontinence or saddle anesthesia. No history of previous back surgeries. No trauma. MD Complaint: extremity pain and joint pain Onset (ago): hour(s) Pain Consistency: constant Location: left and other (Hip) Radiation: distal Relieving factors: rest Exacerbating factors: range of motion, weight bearing and walking Associated symptoms: Deny chest pain, fever(s) or rash Context: other (Twisting injury) Related Data Previous Rx's ?Medication ?Instructions ?Recorded Arch Support #1 ea 09/04/21 Night Splint #1 ea 09/04/21 Sole Supports #1 ea 10/16/21 methocarbamol 750 mg tablet 750 mg PO TID PRN back shailesh n, 03/20/23 muscle spasm #30 tabs Allergies Allergy/AdvReac Type Severity Reaction Status Date / Time codeine Allergy Unknown Verified 03/14/23 18:50 morphine Allergy ALGY-Rash Verified 03/14/23 18:50 Review of Systems General: Reports: 10 or more systems reviewed and unremarkable except in HPI and below Const: Denies: fever(s) or chills Card: Denies: chest pain Resp: Denies: dyspnea or productive cough GI: Denies: abdominal pain, nausea, vomiting or diarrhea : Denies: flank pain Musc: Reports: back pain, extremity pain and joint pain; Denies: neck pain, extremity swelling, joint swelling, joint redness, joint warmth, limited range of motion or muscle weakness Skin/Breast: Denies: rash Neuro: Denies: headache(s), numbness in extremities or weakness in extremities PFSH ED PFSH: Family History Denies family history of Cancer Social History Substance/Drug Use: never Physical Exam Const: COMMON NORMALS: no acute distress, patient oriented x3, no limitations, healthy appearing, alert and well nourished HENMT: COMMON NORMALS: normocephalic and atraumatic HEAD & SCALP: normocephalic and atraumatic Neck/C-Spine: COMMON NORMALS: full ROM, supple and no meningeal signs Resp: COMMON NORMALS: normal respiratory effort, No use of accessory muscles and clear to auscultation bilaterally AUSCULTATION: clear to auscultation bilaterally Cardio: COMMON NORMALS: regular rate, regular rhythm, S1 normal heart sound present and S2 normal heart sound present RATE: regular rate RHYTHM: regular rhythm HEART SOUNDS: S1 normal heart sound present and S2 normal heart sound present Back/Pelvis: COMMON NORMALS: straight leg raise negative bilaterally OTHER: Normal visual examination. No spinous process tenderness or paracervical, parathoracic, or paralumbar tenderness to palpation. Full active range of motion. Extremity: COMMON NORMALS: normal to inspection, full ROM, capillary refill normal, no joint enlargement and no clubbing, cyanosis or edema NARRATIVE EXTREMITY EXAM: Reproducible tenderness to palpation to left posterior hip and left lateral hip with no obvious deformity. Neuro: COMMON NORMALS: patient oriented x3, moves all extremities, no focal motor deficits and no sensory deficits noted SENSORIUM/ORIENTATION: Yes alert MENINGEAL SIGNS: Yes no meningeal signs OTHER: L3, L4, L5, and S1 nerve sensations intact. Normal knee jerk and ankle jerk reflexes. Skin: COMMON NORMALS: no rashes or lesions noted GENERAL SKIN EXAM: no rashes or lesions noted Course Vital Signs: Vital signs: Vital Signs Temperature 97.8 F 06/17/24 17:09 Pulse Rate 100 06/17/24 17:09 Respiratory Rate 16 06/17/24 17:09 Blood Pressure 182/98 06/17/24 17:09 Pulse Oximetry 94 06/17/24 17:09 Oxygen Delivery Me thod Room Air 06/17/24 17:09 MDM - Extremity (Nontraumatic) Medical Decision Making This patient injured his left hip he was concerned of a fracture or dislocation. There is no evidence of this on x-ray, no evidence of arthritis. He does have a history of sciatica as well, which could be an element here with the radiating pain down left leg. Was giving pain medications here and does state he is feeling better, this with his normal x-ray will treat at home for a left muscle strain and potential complication from sciatica. Ultimately referred him to follow-up with primary care he also states that he has the ability to see orthop edic/spine doctor and will follow-up with him as needed. Return precautions given, he verbalized understanding. Lab Data Radiology Impressions Hip/Pelvis X-Ray 06/17/24 17:27 IMPRESSION: No acute findings. All radiology interpretation(s) finalized by discharge Discharge Plan Discharge Patient Disposition: Home Clinical Impression: Muscle strain of left hip, Left lumbar radiculopathy Condition: Stable Prescriptions: No Action (DME) Night Splint See Rx Instructions .Route .MEDSUPPLY Qty: 1 0RF Rx Instructions: As directed (DME) Arch Support See Rx Instructions .Route .MEDSUPPLY Qty: 1 0RF Rx Instructions: As directed (DME) Sole Supports See Rx Instructions .Route .MEDSUPPLY Qty: 1 0RF Rx Instructions: As directed methocarbamol 750 mg tablet 750 mg PO TID PRN (Reason: back pain, muscle spasm) Qty: 30 0RF Discharge Orders: Discharge ED (Routine); Ordered 06/17/24 Ordered By: Florian Anthony Referrals: Sg Jiménez DO [Primary Care Provider] - Patient Instructions: Muscle Strain (ED) Activity Restrictions/Additional Instructions: Continue taking your home medications. Range of motion exercises tolerated. Continue use heat for added relief. Follow-up closely with primary care. Return with any new or concerning. Print Language: Singaporean Coding Level of Care Code ED [employer] for [employer]
[2024-06-17 18:30] VITALS: BP 176/97; PULSE 91; RESP 16; O2SAT 95
== END 2024-06-17 18:28 | disposition home or self-care (01) ==
PROVIDERS: Emergency Provider Physician Assistant; PCP Electrodiagnostic Medicine
DX: S76.012A Strain of muscle, fascia and tendon of left hip, initial encounter (principal); M54.16 Radiculopathy, lumbar region; X58.XXXA Exposure to other specified factors, initial encounter
CPT/HCPCS: 73502; 96372; 99284; J1100; J2360

== ENCOUNTER 2024-09-07 11:47 | Outpatient (CLI) | payer OTHER, MEDICAID, SELFPAY ==
--- NOTE | 2024-09-07 11:54 | MR_ITS ---
WS: [id number] MRI LUMBAR SPINE NONCONTRAST TECHNIQUE: Sagittal T1, T2 and STIR imaging. Axial T1 and T2 imaging. CLINICAL INFORMATION: INTERVERTEBRAL DISC DISORDER LUMBAR REGION COMPARISON: MRI 2022 FINDINGS: Mild lumbar curve. No acute compression. No high-grade central canal stenosis. Alignment is similar to previous. L1-L2: Mild facet arthropathy. L2-L3: Mild annular bulging. Mild facet arthropathy. Narrowing of the RIGHT subarticular recess. Spinal canal and foramen are patent. L3-L4: Mild annular bulging. Mild central canal stenosis. Narrowing of the subarticular recess bilaterally. Moderate facet arthropathy. Mild LEFT foraminal narrowing. L4-L5: Mild annular bulging. Narrowing of the subarticular recess bilaterally. Moderate facet arthropathy. Mild LEFT foraminal narrowing. L5-S1: Mild disc bulge with narrowing of the RIGHT subarticular recess. Moderate facet arthropathy. Mild RIGHT foraminal narrowing. Adrenal glands are normal. Visualized pelvic bony structures: Normal. Paravertebral soft tissues: Normal. MR/MR lumbar spine wo con* [id number] IMPRESSION: 1. Mild central canal stenosis L3-4 slightly progressed compared to previous. Narrowing of the LEFT greater than RIGHT subarticular recess. 2. Mild LEFT L3-4 and LEFT L4-5 foraminal narrowing. 3. Annular bulge L4-5 with narrowing of the subarticular recess bilaterally si milar to previous. 4. Disc bulging L5-S1 with narrowing of the RIGHT greater than LEFT subarticul ar recess. Mild RIGHT L5-S1 foraminal narrowing.
== END 2024-09-07 11:48 | disposition home or self-care (01) ==
LOC: RAD 11:49
PROVIDERS: PCP Electrodiagnostic Medicine; Visit Provider Electrodiagnostic Medicine
DX: M51.06 Intervertebral disc disorders with myelopathy, lumbar region (principal); M48.061 Spinal stenosis, lumbar region without neurogenic claudication; M51.369 Other intervertebral disc degeneration, lumbar region without mention of lumbar back pain or lower extremity pain; M51.379 Other intervertebral disc degeneration, lumbosacral region without mention of lumbar back pain or lower extremity pain; M48.07 Spinal stenosis, lumbosacral region; M43.8X6 Other specified deforming dorsopathies, lumbar region; M47.896 Other spondylosis, lumbar region; M47.897 Other spondylosis, lumbosacral region
CPT/HCPCS: 72148